=== PATIENT | female | born 1950 | race Caucasian/White ===

== ENCOUNTER 2022-10-31 09:37 | Outpatient (CLI) | payer MEDICARE ==
[~2022-10-31 09:37] MED LIST: ATOR20TA66 PO; BENA40TA72 PO; CHOL20004 PO; COEN1CAP PO; MAGN500C4 PO; THERACURMIN PO; VITA-135 PO; [UNRECOGNIZED DRUG - OTHER] PO
== END 2022-10-31 23:59 | disposition home or self-care (01) ==
LOC: VAS 09:37
PROVIDERS: ATTEND Podiatrist Foot & Ankle Surgery
DX: I70.203 Unspecified atherosclerosis of native arteries of extremities, bilateral legs (principal); M79.605 Pain in left leg; M79.604 Pain in right leg
CPT/HCPCS: 93922; 93925

== ENCOUNTER 2022-12-13 09:19 | Outpatient (CLI) | payer MEDICARE ==
[2022-12-13 10:29] LABS: ALBUMIN 3.7 G/DL (3.4-5.0); CALCIUM 9.2 MG/DL (8.5-10.1)
[2022-12-13 10:33] LABS: ANION GAP 12 (8-16); BLOOD UREA NITROGEN 51 MG/DL (7-18); BUN/CREATININE RATIO 28.7 (10.0-20.0); CHLORIDE 102 MMOL/L (99-107); CREATININE 1.78 MG/DL (0.40-0.90); GLUCOSE 191 MG/DL (70-104); POTASSIUM 4.4 MMOL/L (3.5-5.1); SODIUM 137 MMOL/L (135-145); eGFR 28 ML/MIN
[2022-12-14] MEDS ORDERED: IODIXANOL 320 MG/ML INFUS..BTL 100ML IV ONE (13:00)
== END 2022-12-13 23:59 | disposition home or self-care (01) ==
LOC: RAD 09:19
PROVIDERS: ATTEND Internal Medicine Interventional Cardiology
DX: I70.213 Atherosclerosis of native arteries of extremities with intermittent claudication, bilateral legs (principal); I70.0 Atherosclerosis of aorta; I72.8 Aneurysm of other specified arteries; I70.8 Atherosclerosis of other arteries; I11.0 Hypertensive heart disease with heart failure; I50.9 Heart failure, unspecified; Z95.2 Presence of prosthetic heart valve; Z90.49 Acquired absence of other specified parts of digestive tract
CPT/HCPCS: 36415; 75635; 80048; Q9967; 72148

== ENCOUNTER 2022-12-13 09:29 | Outpatient (CLI) | payer MEDICARE ==
[2022-12-13] MEDS ORDERED: iohexol 350 MG/ML 50ML vial IV ONE (10:09)
[2022-12-13] MEDS ORDERED: iohexol 350MG/ML 100ml bottle IV ONE (10:09)
== END 2022-12-13 23:59 | disposition home or self-care (01) ==
LOC: RAD 09:29
PROVIDERS: ATTEND Internal Medicine
DX: M47.27 Other spondylosis with radiculopathy, lumbosacral region (principal); M48.07 Spinal stenosis, lumbosacral region; M51.27 Other intervertebral disc displacement, lumbosacral region; R20.2 Paresthesia of skin; I70.293 Other atherosclerosis of native arteries of extremities, bilateral legs; I72.8 Aneurysm of other specified arteries; N28.1 Cyst of kidney, acquired; Z90.49 Acquired absence of other specified parts of digestive tract
CPT/HCPCS: 36415; 72148; 75635; 80048; J3490; Q9967

== ENCOUNTER 2023-03-17 12:14 | Emergency (ER) | payer MEDICARE ==
[~2023-03-17] VITALS: Ht 162.6 cm; Wt 82.7 kg
[2023-03-17 13:26] VITALS: BP 147/61; PULSE 90; RESP 18; TEMP 98.8; O2SAT 97
[2023-03-17] MEDS ORDERED: NIRM1TAB5 PO (14:12)
[2023-03-17] MEDS ORDERED: BENZ-38 PO (14:14)
== END 2023-03-17 14:22 | disposition home or self-care (01) ==
LOC: ER 12:15
DX: U07.1 COVID-19 (principal); E78.00 Pure hypercholesterolemia, unspecified; I10 Essential (primary) hypertension; Z91.013 Allergy to seafood; Z88.0 Allergy status to penicillin; Z79.899 Other long term (current) drug therapy
CPT/HCPCS: 36415; 87502; 87503; 87811; 99283